=== PATIENT | male | born 1965 | race Hispanic/Latino ===

== ENCOUNTER 2018-11-05 12:53 | Outpatient (AMBR) | payer MEDICAID, SELFPAY ==
--- NOTE | 2018-11-05 14:46 | PT.ODAYNRPT ---
PT Outpatient Daily Note Date of Service: November 05, 2018 OP Daily Note Pediatric or Adult Patient: Adult PT >13 Visit Reasons: BACK PAIN Outpatient Physical Therapy Treatment Date: 11/05/18 Subjective: pain on the low back Objective: pls see FS Assessment: Patient were given strengthening ex and modalities for pain management while doing exercise. Patient has limitation of motion on all lumbar flexors and extensors and sidebending. With centralization of pain during flexion. Patient has numbness on his LLE. His L shoulder is higher than the Left and L pelvis is higher than the right. Patient were educated on proper body mechanics during standing Plan: to continue pOC toward goals. Pain Present Currently: Yes Length of Time (minutes) of Treatment: 30 Minutes
== END 2018-11-14 23:59 | disposition home or self-care (01) ==
PROVIDERS: PCP Family Medicine; Referring Provider Family Medicine; Visit Provider Nurse Practitioner Women's Health
DX: M54.16 Radiculopathy, lumbar region (principal); M62.81 Muscle weakness (generalized); R20.0 Anesthesia of skin
CPT/HCPCS: 97110

== ENCOUNTER 2018-11-19 10:15 | Outpatient (AMBR) | payer MEDICAID, SELFPAY ==
--- NOTE | 2018-11-19 10:26 | PT.ODS1RPT ---
PT OP Progress/Discharge Note Date of Service: November 19, 2018 Progress Note/DC Note Progress Note/Discharge Note: DC Note Patient Information Pediatric or Adult Patient: Adult PT >13 Visit Reasons: BACK PAIN Medical Diagnosis: lumbar radiculopathy Treatment Dx #1: muscle weakness on the LLE Service Continue Service or Discharge: Discharge Discharge Date: 11/19/18 Status Subjective: Pain at worst 8/10 especially during ambulation and has difficulty doing Sit to stand (STS). Pain is usually all through out the day. Objective: LLE (+) Paresthesia pain during Trunk bending forward > Trunk extension Pain on the low back PS 6/10 at the time of treatment . (+) antalgic gait more painful during sitting to standing and during prolonged ambulation. Assessment: Patient will be dc today due to no significant changes noted. Therapy management only provides temporary relief, usually just for a day and the pain will come back again the next day. Patient were given HEP e.g. supine marching in place and slr and prone push ups. Patient were able to tolerate activities today. He has (+) Paresthesia. on his LLE. Discharge Comment: Patient will be dc from PT services and will be referred back to the referring MD for further management. Patient doesn't show significant gains with therapy. Patient was seen for 10 treatment sessions.
== END 2018-12-14 23:59 | disposition home or self-care (01) ==
PROVIDERS: PCP Family Medicine; Referring Provider Family Medicine; Visit Provider Physical Medicine & Rehabilitation Pain Medicine
DX: M54.16 Radiculopathy, lumbar region (principal); M62.81 Muscle weakness (generalized); R26.2 Difficulty in walking, not elsewhere classified
CPT/HCPCS: 97110